=== PATIENT | female | born 1960 | race Caucasian/White ===

== ENCOUNTER → 2018-12-21 | Outpatient (CLI) | payer OTHER ==
[~2018-12-21] MED LIST: ALOG25TA PO; ASPI-555 PO; ATOR40TA69 PO; IOHEXOL-350 50ML VIAL IV ONE
== END | disposition home or self-care (01) ==
LOC: RAH 13:50
PROVIDERS: ATTEND Neurological Surgery
DX: D32.9 Benign neoplasm of meninges, unspecified (principal)
CPT/HCPCS: 70470; Q9967

== ENCOUNTER → 2019-04-04 | Outpatient (CLI) | payer OTHER ==
[~2019-04-04] MED LIST changes: -IOHEXOL-350 50ML VIAL IV ONE
== END | disposition home or self-care (01) ==
LOC: RAH 14:27
PROVIDERS: ATTEND Psychiatry & Neurology Neurology
DX: M47.26 Other spondylosis with radiculopathy, lumbar region (principal); M47.22 Other spondylosis with radiculopathy, cervical region; M51.16 Intervertebral disc disorders with radiculopathy, lumbar region; M48.061 Spinal stenosis, lumbar region without neurogenic claudication; J34.1 Cyst and mucocele of nose and nasal sinus; M25.78 Osteophyte, vertebrae
CPT/HCPCS: 72125; 72131

== ENCOUNTER → 2019-07-05 | Outpatient (CLI) | payer OTHER ==
[~2019-07-05] MED LIST changes: +GADODIAMIDE 10 MMOL/20 ML VIAL IV ONE
[2019-07-05 11:36] LABS: CREATININE 0.8 mg/dL (0.5-1.5)
== END | disposition home or self-care (01) ==
LOC: RAH 10:36
PROVIDERS: ATTEND Neurological Surgery
DX: D32.0 Benign neoplasm of cerebral meninges (principal)
CPT/HCPCS: 36415; 70553; 82565; 84520; A9579

== ENCOUNTER → 2019-08-26 | Outpatient (CLI) | payer OTHER ==
[~2019-08-26] MED LIST changes: -ASPI-555 PO; +ASPI-556 PO; -GADODIAMIDE 10 MMOL/20 ML VIAL IV ONE
== END | disposition home or self-care (01) ==
LOC: RAH 13:07
PROVIDERS: ATTEND Internal Medicine Cardiovascular Disease
DX: R60.0 Localized edema (principal)
CPT/HCPCS: 93971

== ENCOUNTER → 2020-01-08 | Outpatient (CLI) | payer BC | END | disposition home or self-care (01) | LOC: RAH 07:58 | PROVIDERS: ATTEND Family Medicine | DX: Z12.31 Encounter for screening mammogram for malignant neoplasm of breast (principal) | CPT/HCPCS: 77067 ==

== ENCOUNTER 2020-12-05 13:31 | Inpatient (IN) | payer BC ==
[~2020-12-05] VITALS: Ht 147.3 cm; Wt 102.5 kg
[2020-12-05 13:55] LABS: BASOPHILS % (AUTO) 0.6 % (0.0-5.0); EOSINOPHILS % (AUTO) 1.6 % (0.0-8.0); HEMATOCRIT 35.3 % (36-48); LYMPHOCYTES % (AUTO) 11.9 % (21.0-51.0); MEAN CORPUSCULAR HEMOGLOBIN 27.9 pg (27.0-33.0); MEAN CORPUSCULAR HGB CONC 32.3 g/dL (32.0-36.0); MEAN CORPUSCULAR VOLUME 86.5 fL (79-99); MONOCYTES % (AUTO) 6.9 % (3.0-13.0); NEUTROPHILS % (AUTO) 78.5 % (40.0-77.0); PLATELET COUNT (AUTO) 248 K/uL (130-400); RED BLOOD CELL COUNT(AUTO) 4.08 MIL/uL (4.00-5.50); RED CELL DISTRIBUTION WIDTH 13.9 % (11.0-15.5); WHITE BLOOD COUNT (AUTO) 10.9 K/uL (4.8-10.8)
[2020-12-05 14:07] LABS: CREATININE 1.3 mg/dL (0.5-1.5); POTASSIUM 4.7 mmol/L (3.5-5.1)
[2020-12-05 14:08] LABS: INR 0.96 (0.85-1.15); PROTHROMBIN TIME 10.5 SEC (9.6-11.6)
[2020-12-05 14:10] LABS: B-TYPE NATRIURETIC PEPTIDE 135 pg/mL (0-100)
[2020-12-05 14:11] LABS: ALBUMIN 3.5 g/dL (3.5-5.0); BILIRUBIN,TOTAL 0.3 mg/dL (0.2-1.0); MAGNESIUM 1.4 mg/dL (1.80-2.40); TOTAL PROTEIN, SERUM 6.5 g/dL (6.0-8.3)
[2020-12-05 15:03] LABS: PARTIAL THROMBOPLASTIN TIME 24.9 SEC (26.3-35.5)
[2020-12-05] MEDS ORDERED: HYDROCODONE/ACETAMINOPHEN 5/325 MG TAB PO PRN (20:00)
[2020-12-05] MEDS ORDERED: 0.9% NACL 500ML IV.SOLN 500 ML IV SCH (20:00)
[2020-12-05] MEDS ORDERED: ACETAMINOPHEN 325 MG TAB PO PRN ×2 (20:00)
[2020-12-05] MEDS ORDERED: MAG/ALUM/SIMETH 30 ML UDCUP PO PRN (20:00)
[2020-12-05] MEDS ORDERED: ONDANSETRON 4MG INJ IV PRN (20:00)
[2020-12-05] MEDS ORDERED: LACTULOSE 20 GM/30 ML UDCUP PO PRN (20:00)
[2020-12-05 20:10] LABS: HEMATOCRIT 34.2 % (36-48); MEAN CORPUSCULAR HEMOGLOBIN 27.9 pg (27.0-33.0); MEAN CORPUSCULAR HGB CONC 32.7 g/dL (32.0-36.0); MEAN CORPUSCULAR VOLUME 85.1 fL (79-99); RED BLOOD CELL COUNT(AUTO) 4.02 MIL/uL (4.00-5.50); RED CELL DISTRIBUTION WIDTH 13.9 % (11.0-15.5); WHITE BLOOD COUNT (AUTO) 8.8 K/uL (4.8-10.8)
[2020-12-05 20:26] LABS: CHOLESTEROL 152 mg/dL (<200); HDL CHOLESTEROL 46 mg/dL (35-85); LDL DIRECT 80 mg/dL (0-99); TRIGLYCERIDES 181 mg/dL (30-200)
[2020-12-05] MEDS: INSULIN HUMULIN R 100 UNIT/ML 3ML SQ SCH (21:00)
[2020-12-05] MEDS: ATORVASTATIN 40 MG TABLET PO SCH (21:24)
[2020-12-05] MEDS: LEVETIRACETAM 250 MG TABLET PO SCH (21:24)
[2020-12-05 21:40] VITALS: BP_SYST 129; BP_SYST 139; BP_SYST 142; BP_DIAS 68; BP_DIAS 83; BP_DIAS 99
[2020-12-05] MEDS ORDERED: AMLO-257 PO (23:50)
[2020-12-05] MEDS ORDERED: ALOG25TA PO (23:50)
[2020-12-05] MEDS ORDERED: LABE200T5 PO (23:50)
[2020-12-05] MEDS ORDERED: PREG100C PO (23:50)
[2020-12-05] MEDS ORDERED: METF-445 PO (23:50)
[2020-12-05] MEDS ORDERED: SITA100T12 PO (23:50)
[2020-12-05] MEDS ORDERED: DOXA2TAB2 PO (23:50)
[2020-12-05] MEDS ORDERED: OLME40TA18 PO (23:50)
[2020-12-06 00:16] VITALS: BP_SYST 116; BP_SYST 128; BP_SYST 135; BP_DIAS 64; BP_DIAS 75; BP_DIAS 94
[2020-12-06] MEDS ORDERED: MAGNESIUM 2GM PREMIX 50ML 50 ML IV PRN (00:30)
[2020-12-06] MEDS ORDERED: TRAM50TA4 PO (01:18)
[2020-12-06] MEDS ORDERED: FAMO40TA7 PO (01:18)
[2020-12-06] MEDS ORDERED: VITA-16 PO (01:18)
[2020-12-06] MEDS ORDERED: LABE200T5 PO (01:18)
[2020-12-06] MEDS ORDERED: DULO60CA64 PO (01:18)
[2020-12-06] MEDS ORDERED: FURO20TA4 PO (01:18)
[2020-12-06] MEDS ORDERED: TIZA4TAB5 PO (01:18)
[2020-12-06] MEDS ORDERED: VITA-300 PO (01:18)
[2020-12-06] MEDS ORDERED: AEC81 PO (01:18)
[2020-12-06] MEDS ORDERED: ATOR40TA71 PO (01:18)
[2020-12-06 04:16] VITALS: BP_SYST 113; BP_SYST 138; BP_SYST 156; BP_DIAS 70; BP_DIAS 92
[2020-12-06 04:42] LABS: APPEARANCE,URINE Clear (CLEAR); BILIRUBIN,URINE Negative (NEGATIVE); COLOR,URINE Yellow (YELLOW); GLUCOSE, URINE (UA) Negative (NEGATIVE); KETONES,URINE Negative (NEGATIVE); LEUKOCYTE ESTERASE ,URINE Small (NEGATIVE); NITRATE,URINE Positive (NEGATIVE); OCCULT BLOOD,URINE Negative (NEGATIVE); PROTEIN,URINE Negative (NEGATIVE); UROBILINOGEN,URINE 0.2 mg/dL (0.2-1.0)
[2020-12-06 04:50] LABS: AMPHET/METH SCREEN,URINE NEGATIVE (NEGATIVE); BARBITURATE SCREEN, URINE NEGATIVE (NEGATIVE); BENZODIAZEPINES SCREEN,URINE NEGATIVE (NEGATIVE); CANNABINOID SCREEN,URINE NEGATIVE (NEGATIVE); COCAINE SCREEN,URINE NEGATIVE (NEGATIVE); OPIATE SCREEN,URINE NEGATIVE (NEGATIVE); PHENCYCLIDINE SCREEN,URINE NEGATIVE (NEGATIVE)
[2020-12-06 04:52] LABS: BACTERIA,URINE Moderate /HPF (None Seen); RBC,URINE None Seen /HPF (0-1); SQUAMOUS EPITHELIAL CELL,UR 0-2 /HPF (0-2)
[2020-12-06 06:30] LABS: HEMOGLOBIN A1C 9.4 % (4.0-6.0)
[2020-12-06 06:32] LABS: CREATININE 0.7 mg/dL (0.5-1.5); MAGNESIUM 1.6 mg/dL (1.80-2.40); POTASSIUM 3.9 mmol/L (3.5-5.1)
[2020-12-06] MEDS: INSULIN HUMULIN R 100 UNIT/ML 3ML SQ SCH ×4 (06:33→20:48)
[2020-12-06 08:21] VITALS: BP_SYST 136; BP_SYST 163; BP_SYST 170; BP_DIAS 65; BP_DIAS 68
[2020-12-06] MEDS: ASPIRIN 81 MG EC TAB PO SCH (11:05)
[2020-12-06] MEDS: LEVETIRACETAM 250 MG TABLET PO SCH ×2 (11:05→20:19)
[2020-12-06] MEDS: ENOXAPARIN SODIUM 40 MG/0.4 ML SYRINGE SQ SCH (11:05)
[2020-12-06 12:00] VITALS: BP_SYST 148; BP_SYST 150; BP_SYST 159; BP_DIAS 57; BP_DIAS 73; BP_DIAS 76
[2020-12-06] MEDS: CEFTRIAXONE 1G VIAL IVP SCH (13:28)
[2020-12-06] MEDS: PREGABALIN 100 MG CAPSULE PO SCH ×2 (13:28→20:18)
[2020-12-06 16:00] VITALS: BP 147/69
[2020-12-06 20:16] VITALS: BP_SYST 162; BP_SYST 198; BP_SYST 203; BP_DIAS 56; BP_DIAS 59; BP_DIAS 88
[2020-12-06] MEDS: DOXAZOSIN MESYLATE 2 MG TABLET PO SCH (20:18)
[2020-12-06] MEDS: LABETALOL HCL 200 MG TABLET PO SCH (20:18)
[2020-12-06] MEDS: ATORVASTATIN 40 MG TABLET PO SCH (20:18)
[2020-12-06] MEDS: TIZANIDINE HCL 2 MG TABLET PO SCH (20:18)
[2020-12-06] MEDS ORDERED: ATORVASTATIN 40 MG TABLET PO SCH (21:00)
[2020-12-07] VITALS (9 sets, daily range): BP systolic 107–187; BP diastolic 52–93
[2020-12-07 06:02] LABS: BASOPHILS % (AUTO) 0.8 % (0.0-5.0); EOSINOPHILS % (AUTO) 4.1 % (0.0-8.0); HEMATOCRIT 35.2 % (36-48); LYMPHOCYTES % (AUTO) 33.5 % (21.0-51.0); MEAN CORPUSCULAR HEMOGLOBIN 27.8 pg (27.0-33.0); MEAN CORPUSCULAR HGB CONC 32.1 g/dL (32.0-36.0); MEAN CORPUSCULAR VOLUME 86.5 fL (79-99); NEUTROPHILS % (AUTO) 49.1 % (40.0-77.0); PLATELET COUNT (AUTO) 216 K/uL (130-400); RED BLOOD CELL COUNT(AUTO) 4.07 MIL/uL (4.00-5.50); WHITE BLOOD COUNT (AUTO) 6.3 K/uL (4.8-10.8)
[2020-12-07 06:19] LABS: CREATININE 0.8 mg/dL (0.5-1.5); MAGNESIUM 1.9 mg/dL (1.80-2.40); POTASSIUM 4.1 mmol/L (3.5-5.1)
[2020-12-07] MEDS: INSULIN HUMULIN R 100 UNIT/ML 3ML SQ SCH ×4 (06:40→21:00)
[2020-12-07] MEDS: ENOXAPARIN SODIUM 40 MG/0.4 ML SYRINGE SQ SCH (08:56)
[2020-12-07] MEDS: DULOXETINE HCL 30 MG CAP PO SCH (08:56)
[2020-12-07] MEDS: AMLODIPINE 5 MG TAB PO SCH (08:59)
[2020-12-07] MEDS: DOXAZOSIN MESYLATE 2 MG TABLET PO SCH ×2 (08:59→21:04)
[2020-12-07] MEDS: Vitamin B Complex/Vit C/Folic Acid PO SCH (08:59)
[2020-12-07] MEDS: ASPIRIN 81 MG EC TAB PO SCH (09:00)
[2020-12-07] MEDS: LEVETIRACETAM 250 MG TABLET PO SCH ×2 (09:00→21:04)
[2020-12-07] MEDS ORDERED: ASPIRIN 81 MG EC TAB PO SCH (09:00)
[2020-12-07] MEDS: LABETALOL HCL 200 MG TABLET PO SCH ×2 (09:00→21:03)
[2020-12-07] MEDS ORDERED: FUROSEMIDE 20 MG TABLET PO SCH (09:00)
[2020-12-07] MEDS: Olmesartan Medoxomil 40 MG PO SCH (09:00)
[2020-12-07] MEDS: PREGABALIN 100 MG CAPSULE PO SCH ×3 (09:00→21:03)
[2020-12-07] MEDS: CEFTRIAXONE 1G VIAL IVP SCH (13:44)
[2020-12-07] MEDS: ATORVASTATIN 40 MG TABLET PO SCH (21:03)
[2020-12-07] MEDS: TIZANIDINE HCL 2 MG TABLET PO SCH (21:04)
[2020-12-08 04:30] VITALS: BP 151/92
[2020-12-08 05:03] LABS: BASOPHILS % (AUTO) 0.9 % (0.0-5.0); EOSINOPHILS % (AUTO) 5.1 % (0.0-8.0); HEMATOCRIT 35.8 % (36-48); LYMPHOCYTES % (AUTO) 37.4 % (21.0-51.0); MEAN CORPUSCULAR HEMOGLOBIN 27.4 pg (27.0-33.0); MEAN CORPUSCULAR VOLUME 88.4 fL (79-99); MONOCYTES % (AUTO) 12.1 % (3.0-13.0); PLATELET COUNT (AUTO) 203 K/uL (130-400); RED BLOOD CELL COUNT(AUTO) 4.05 MIL/uL (4.00-5.50); RED CELL DISTRIBUTION WIDTH 14.2 % (11.0-15.5); WHITE BLOOD COUNT (AUTO) 5.5 K/uL (4.8-10.8)
[2020-12-08 05:11] LABS: CREATININE 0.7 mg/dL (0.5-1.5); POTASSIUM 3.8 mmol/L (3.5-5.1)
[2020-12-08] MEDS: INSULIN HUMULIN R 100 UNIT/ML 3ML SQ SCH ×2 (06:38→12:07)
[2020-12-08 08:10] VITALS: BP_SYST 128; BP_SYST 142; BP_DIAS 43; BP_DIAS 91
[2020-12-08 08:11] VITALS: BP 156/64
[2020-12-08] MEDS: Olmesartan Medoxomil 40 MG PO SCH (09:00)
[2020-12-08] MEDS: LEVETIRACETAM 250 MG TABLET PO SCH (10:01)
[2020-12-08] MEDS: Vitamin B Complex/Vit C/Folic Acid PO SCH (10:01)
[2020-12-08] MEDS: ENOXAPARIN SODIUM 40 MG/0.4 ML SYRINGE SQ SCH (10:01)
[2020-12-08] MEDS: DOXAZOSIN MESYLATE 2 MG TABLET PO SCH (10:02)
[2020-12-08] MEDS: AMLODIPINE 5 MG TAB PO SCH (10:02)
[2020-12-08] MEDS: ASPIRIN 81 MG EC TAB PO SCH (10:02)
[2020-12-08] MEDS: PREGABALIN 100 MG CAPSULE PO SCH (10:02)
[2020-12-08] MEDS: LABETALOL HCL 200 MG TABLET PO SCH (10:02)
[2020-12-08] MEDS: DULOXETINE HCL 30 MG CAP PO SCH (10:03)
[2020-12-08 11:31] VITALS: BP 115/80
[2020-12-08] MEDS ORDERED: LEVE250T PO (13:47)
== END 2020-12-08 15:34 | disposition home or self-care (01) | DRG 309 ==
LOC: EDH 13:31 → OBSVTOIN 17:14 → INTOOBSV 17:14 → EDHIP 17:14 → 3AH 21:59
PROVIDERS: ADMIT Hospitalist; ATTEND Hospitalist
DX: I49.9 Cardiac arrhythmia, unspecified (principal); K51.90 Ulcerative colitis, unspecified, without complications; Z68.42 Body mass index [BMI] 45.0-49.9, adult; N39.0 Urinary tract infection, site not specified; G40.909 Epilepsy, unspecified, not intractable, without status epilepticus; I95.1 Orthostatic hypotension; H93.19 Tinnitus, unspecified ear; E83.42 Hypomagnesemia; F43.9 Reaction to severe stress, unspecified; E11.65 Type 2 diabetes mellitus with hyperglycemia; E66.01 Morbid (severe) obesity due to excess calories; Z20.822 Contact with and (suspected) exposure to COVID-19; D32.9 Benign neoplasm of meninges, unspecified; E78.00 Pure hypercholesterolemia, unspecified; E78.5 Hyperlipidemia, unspecified; I10 Essential (primary) hypertension; I25.10 Atherosclerotic heart disease of native coronary artery without angina pectoris; R32 Unspecified urinary incontinence; I25.2 Old myocardial infarction; Z79.899 Other long term (current) drug therapy; Z95.5 Presence of coronary angioplasty implant and graft; Z95.1 Presence of aortocoronary bypass graft; Z86.011 Personal history of benign neoplasm of the brain; Z90.710 Acquired absence of both cervix and uterus; Z83.3 Family history of diabetes mellitus; Z82.5 Family history of asthma and other chronic lower respiratory diseases; Z82.49 Family history of ischemic heart disease and other diseases of the circulatory system; Z82.3 Family history of stroke; Z82.0 Family history of epilepsy and other diseases of the nervous system; Z80.1 Family history of malignant neoplasm of trachea, bronchus and lung; Z80.3 Family history of malignant neoplasm of breast
CPT/HCPCS: 36415; 70450; 70544; 70553; 71045; 80048; 80053; 80061; 80305; 81001; 82550; 82948; 83036; 83735; 83880; 84443; 84484; 85025; 85027; 85378; 85610; 85730; 87077; 87088; 87186; 87635; 93005; 93880; 97039; G0378; J0696; J1650; J1815; J3475

== ENCOUNTER → 2021-02-17 | Outpatient (CLI) | payer BC ==
[~2021-02-17] MED LIST changes: +AEC81 PO; +AMLO-257 PO; -ASPI-556 PO; -ATOR40TA69 PO; +ATOR40TA71 PO; +DOXA2TAB2 PO; +DULO60CA64 PO; +FURO20TA4 PO; +LABE200T5 PO; +LEVE250T PO; +METF-445 PO; +OLME40TA18 PO; +PREG100C PO; +SITA100T12 PO; +TIZA-211 PO; +VITA-16 PO
[2021-02-17 11:55] LABS: CREATININE 0.7 mg/dL (0.5-1.5)
== END | disposition home or self-care (01) ==
LOC: LAB 11:02
DX: D32.9 Benign neoplasm of meninges, unspecified (principal)
CPT/HCPCS: 36415; 82565

== ENCOUNTER → 2021-02-23 | Outpatient (CLI) | payer BC ==
[~2021-02-23] MED LIST changes: +GADOTERATE MEGLUMINE 10 MMOL/20 ML VIAL IV ONE
== END | disposition home or self-care (01) ==
LOC: RAH 12:54
DX: G37.1 Central demyelination of corpus callosum (principal)
CPT/HCPCS: 72156; 72157; A9575

== ENCOUNTER → 2021-07-22 | Outpatient (CLI) | payer BC ==
[~2021-07-22] MED LIST changes: -GADOTERATE MEGLUMINE 10 MMOL/20 ML VIAL IV ONE
== END | disposition home or self-care (01) ==
LOC: RAH 10:21
PROVIDERS: ATTEND Family Medicine
DX: S93.402A Sprain of unspecified ligament of left ankle, initial encounter (principal); X58.XXXA Exposure to other specified factors, initial encounter; Y93.89 Activity, other specified; Y92.89 Other specified places as the place of occurrence of the external cause; Y99.8 Other external cause status
CPT/HCPCS: 73610

== ENCOUNTER → 2021-08-03 | Outpatient (CLI) | payer BC | END | disposition home or self-care (01) | LOC: RAH 11:07 | PROVIDERS: ATTEND Family Medicine | DX: Z12.31 Encounter for screening mammogram for malignant neoplasm of breast (principal) | CPT/HCPCS: 77067 ==

== ENCOUNTER → 2022-08-04 | Outpatient (CLI) | payer BC, MEDICARE ==
[~2022-08-04] MED LIST changes: -ALOG25TA PO; -DOXA2TAB2 PO; -FURO20TA4 PO; -LABE200T5 PO; -LEVE250T PO; -METF-445 PO; -OLME40TA18 PO; -SITA100T12 PO; -TIZA-211 PO; -VITA-16 PO
[2022-08-04 13:39] LABS: CREATININE 1.2 mg/dL (0.5-1.5); POTASSIUM 4.9 mmol/L (3.5-5.1)
== END | disposition home or self-care (01) ==
LOC: LAB 12:11
DX: D32.9 Benign neoplasm of meninges, unspecified (principal)
CPT/HCPCS: 36415; 80048

== ENCOUNTER → 2022-08-10 | Outpatient (CLI) | payer BC, MEDICARE ==
[~2022-08-10] MED LIST changes: +GADOTERATE MEGLUMINE 5 MMOL/10 ML VIAL IV ONE
== END | disposition home or self-care (01) ==
LOC: RAH 10:53
DX: D32.9 Benign neoplasm of meninges, unspecified (principal); R90.82 White matter disease, unspecified
CPT/HCPCS: 70553; A9575

== ENCOUNTER → 2022-08-15 | Outpatient (CLI) | payer BC ==
[~2022-08-15] MED LIST changes: -GADOTERATE MEGLUMINE 5 MMOL/10 ML VIAL IV ONE
[2022-08-15 12:11] LABS: BASOPHILS % (AUTO) 1.2 % (0.0-5.0); EOSINOPHILS % (AUTO) 4.1 % (0.0-8.0); HEMATOCRIT 37.5 % (36-48); LYMPHOCYTES % (AUTO) 22.4 % (21.0-51.0); MEAN CORPUSCULAR HGB CONC 31.7 g/dL (32.0-36.0); MEAN CORPUSCULAR VOLUME 82.1 fL (79-99); MONOCYTES % (AUTO) 7.5 % (3.0-13.0); NEUTROPHILS % (AUTO) 63.9 % (40.0-77.0); PLATELET COUNT (AUTO) 304 K/uL (130-400); RED BLOOD CELL COUNT(AUTO) 4.57 MIL/uL (4.00-5.50); RED CELL DISTRIBUTION WIDTH 15.8 % (11.0-15.5); WHITE BLOOD COUNT (AUTO) 7.7 K/uL (4.8-10.8)
[2022-08-15 12:19] LABS: HEMOGLOBIN A1C 12.7 % (4.0-6.0)
== END | disposition home or self-care (01) ==
LOC: RAH 11:28
PROVIDERS: ATTEND Family Medicine
DX: Z12.31 Encounter for screening mammogram for malignant neoplasm of breast (principal)
CPT/HCPCS: 36415; 77067; 83036; 85025

== ENCOUNTER 2023-03-01 13:42 | Emergency (ER) | payer BC, MEDICARE ==
[~2023-03-01] VITALS: Ht 152.4 cm; Wt 113.4 kg
[~2023-03-01 13:42] MED LIST changes: +ALOG25TA PO; +LABE200T7 PO; +LAMO25TA9 PO; +METF-444 PO; +OLME40TA18 PO; +SITA100T12 PO; +TIZA-211 PO
[2023-03-01 15:01] LABS: BASOPHILS # (AUTO) 0.05 K/uL (0.00-0.20); BASOPHILS % (AUTO) 0.6 % (0.0-5.0); EOSINOPHILS % (AUTO) 2.4 % (0.0-8.0); HEMATOCRIT 34.2 % (36-48); IMMATURE GRANULOCYTE ABSOLUTE 0.06 K/uL (0-1); LYMPHOCYTES # (AUTO) 0.9 K/uL (1.0-4.8); LYMPHOCYTES % (AUTO) 10.7 % (21.0-51.0); MEAN CORPUSCULAR HEMOGLOBIN 26.1 pg (27.0-33.0); MEAN CORPUSCULAR HGB CONC 32.5 g/dL (32.0-36.0); MEAN CORPUSCULAR VOLUME 80.3 fL (79-99); MONOCYTES # (AUTO) 0.6 K/uL (0.1-1.0); MONOCYTES % (AUTO) 7.6 % (3.0-13.0); NEUTROPHILS # (AUTO) 6.5 K/uL (1.8-7.7); PLATELET COUNT (AUTO) 253 K/uL (130-400); RED BLOOD CELL COUNT(AUTO) 4.26 MIL/uL (4.00-5.50); RED CELL DISTRIBUTION WIDTH 14.4 % (11.0-15.5); WHITE BLOOD COUNT (AUTO) 8.3 K/uL (4.8-10.8)
[2023-03-01 15:11] LABS: CREATININE 0.9 mg/dL (0.5-1.5); POTASSIUM 4.5 mmol/L (3.5-5.1)
[2023-03-01 15:21] LABS: ALBUMIN 3.2 g/dL (3.5-5.0); BILIRUBIN,TOTAL 0.5 mg/dL (0.2-1.0); TOTAL PROTEIN, SERUM 6.4 g/dL (6.0-8.3)
[2023-03-01 17:59] VITALS: BP 125/62; PULSE 68; RESP 19; O2SAT 96
[2023-03-01 18:13] LABS: APPEARANCE,URINE CLOUDY (CLEAR); BILIRUBIN,URINE NEGATIVE (NEGATIVE); COLOR,URINE YELLOW (YELLOW); GLUCOSE, URINE (UA) >=1000 mg/dL (NEGATIVE); KETONES,URINE NEGATIVE (NEGATIVE); LEUKOCYTE ESTERASE ,URINE 500 Leu/uL (NEGATIVE); NITRATE,URINE 2+ (NEGATIVE); OCCULT BLOOD,URINE NEGATIVE (NEGATIVE); PH,URINE 5.5 (5.0-8.0); PROTEIN,URINE 10 mg/dL (NEGATIVE); UROBILINOGEN,URINE 0.2 mg/dL (0.2-1.0)
[2023-03-01 18:14] LABS: ADD UA MICROSCOPIC YES
[2023-03-01 18:15] LABS: BACTERIA,URINE FEW /HPF (None Seen); MUCUS,URINE RARE LPF (None Seen); OTHER CASTS, URINE 5 /LPF (None Seen); SQUAMOUS EPITHELIAL CELL,UR FEW /HPF (0-2); UNCLASSIFIED CRYSTAL 4 /HPF (None Seen); WBC,URINE TNTC /HPF (0-1); YEAST,URINE BUDDING RARE /HPF (None Seen)
[2023-03-01] MEDS ORDERED: 0.9% NACL 500ML IV.SOLN 500 ML IV ONE (18:30)
[2023-03-01] MEDS ORDERED: NITR100C PO (18:32)
[2023-03-02] MEDS ORDERED: METF-445 PO (23:00)
== END 2023-03-01 20:05 | disposition home or self-care (01) ==
LOC: EDH 13:42
DX: I95.1 Orthostatic hypotension (principal); E11.9 Type 2 diabetes mellitus without complications; E78.00 Pure hypercholesterolemia, unspecified; I10 Essential (primary) hypertension; Z79.82 Long term (current) use of aspirin; Z79.84 Long term (current) use of oral hypoglycemic drugs; Z79.899 Other long term (current) drug therapy; Z85.841 Personal history of malignant neoplasm of brain; Z88.5 Allergy status to narcotic agent
CPT/HCPCS: 99284; 96360; 71045; 96361; 84484; 80053; 85025; 87077; 87088; 87186; 81001; 36415; 93005; J7040

== ENCOUNTER 2023-08-29 10:40 | Day surgery (SDC) | payer BC, MEDICARE ==
[~2023-08-29] VITALS: Ht 144.8 cm; Wt 93.4 kg
[2023-08-29] VITALS (12 sets, daily range): BP systolic 94–143; BP diastolic 41–78; PULSE 60–91; RESP 12–19
[~2023-08-29 10:40] MED LIST changes: +ACET-2247 PO; -ALOG25TA PO; -AMLO-257 PO; +ERGO500093 PO; +FAMO40TA7 PO; +LAMO150T6 PO; -METF-444 PO; +METF-445 PO; -TIZA-211 PO; +TIZA4CAP8 PO; +TRAM50TA4 PO; +VITA1CAP85 PO
[2023-08-29] MEDS: 0.9%NACL 1000ML 1,000 ML IV ONE (12:44)
[2023-08-29] MEDS ORDERED: TYLENOL PO (12:51)
[2023-08-29] MEDS ORDERED: SITA100T12 PO (12:51)
[2023-08-29] MEDS ORDERED: MIRA50TA PO (12:51)
[2023-08-29] MEDS ORDERED: INSLAN SQ (12:51)
[2023-08-29] MEDS ORDERED: DULO60CA64 PO (12:51)
[2023-08-29] MEDS ORDERED: PROPOFOL 10 MG/ML 20ML VIAL IV ONE (12:58)
== END 2023-08-29 14:45 | disposition home or self-care (01) ==
LOC: ENDO 10:40 → DAH 10:40 → ENDO 14:45
PROVIDERS: ATTEND Internal Medicine Gastroenterology
DX: Z12.11 Encounter for screening for malignant neoplasm of colon (principal); K29.50 Unspecified chronic gastritis without bleeding; K21.00 Gastro-esophageal reflux disease with esophagitis, without bleeding; K64.0 First degree hemorrhoids; K51.311 Ulcerative (chronic) rectosigmoiditis with rectal bleeding; R13.10 Dysphagia, unspecified; K25.3 Acute gastric ulcer without hemorrhage or perforation; E11.9 Type 2 diabetes mellitus without complications; I10 Essential (primary) hypertension; E78.5 Hyperlipidemia, unspecified; Z82.5 Family history of asthma and other chronic lower respiratory diseases; Z82.3 Family history of stroke; Z82.49 Family history of ischemic heart disease and other diseases of the circulatory system; Z79.4 Long term (current) use of insulin; Z79.82 Long term (current) use of aspirin; Z79.899 Other long term (current) drug therapy; Z98.890 Other specified postprocedural states; Z90.49 Acquired absence of other specified parts of digestive tract; Z90.710 Acquired absence of both cervix and uterus
CPT/HCPCS: 82948; 43239; 45380; J7030 ×2; J2704; A4620; A4215; A4223; A7002; A4222; A4221; A4663; A4606; J3490

== ENCOUNTER → 2023-10-19 | Outpatient (CLI) | payer BC, MEDICARE ==
[~2023-10-19] MED LIST changes: -ACET-2247 PO; -ERGO500093 PO; -FAMO40TA7 PO; +INSLAN SQ; -LAMO25TA9 PO; -METF-445 PO; +MIRA50TA PO; -PREG100C PO; -TIZA4CAP8 PO; -TRAM50TA4 PO; +TYLENOL PO; -VITA1CAP85 PO
== END | disposition home or self-care (01) ==
LOC: LAB 11:20
PROVIDERS: ATTEND Internal Medicine Gastroenterology
DX: K51.311 Ulcerative (chronic) rectosigmoiditis with rectal bleeding (principal)
CPT/HCPCS: 36415; 82565; 84520

== ENCOUNTER → 2023-10-23 | Outpatient (CLI) | payer BC, MEDICARE ==
[~2023-10-23] MED LIST changes: +IOHEXOL 350 MG/ML 100ML INFUS..BTL IV ONE
== END | disposition home or self-care (01) ==
LOC: RAH 07:51
PROVIDERS: ATTEND Internal Medicine Gastroenterology
DX: R19.02 Left upper quadrant abdominal swelling, mass and lump (principal); M47.815 Spondylosis without myelopathy or radiculopathy, thoracolumbar region; I70.90 Unspecified atherosclerosis; Z90.49 Acquired absence of other specified parts of digestive tract
CPT/HCPCS: 74177; Q9967

== ENCOUNTER → 2023-11-27 | Outpatient (CLI) | payer BC, MEDICARE ==
[~2023-11-27] MED LIST changes: -IOHEXOL 350 MG/ML 100ML INFUS..BTL IV ONE
== END | disposition home or self-care (01) ==
LOC: LAB 13:34
PROVIDERS: ATTEND Internal Medicine Gastroenterology
DX: R93.2 Abnormal findings on diagnostic imaging of liver and biliary tract (principal)
CPT/HCPCS: 36415; 82565; 84520

== ENCOUNTER → 2023-12-01 | Outpatient (CLI) | payer BC, MEDICARE ==
[~2023-12-01] MED LIST changes: +GADOTERATE MEGLUMINE 10 MMOL/20 ML VIAL IV ONE
== END | disposition home or self-care (01) ==
LOC: RAH 07:43
PROVIDERS: ATTEND Internal Medicine Gastroenterology
DX: R93.2 Abnormal findings on diagnostic imaging of liver and biliary tract (principal); Z90.49 Acquired absence of other specified parts of digestive tract
CPT/HCPCS: 74183; A9575

== ENCOUNTER 2024-02-08 06:35 | Day surgery (SDC) | payer BC, MEDICARE ==
[2024-02-08] VITALS (9 sets, daily range): BP systolic 114–161; BP diastolic 56–78; PULSE 62–69; RESP 15–19; TEMP 96.9–97.1
[~2024-02-08] VITALS: Ht 147.3 cm; Wt 93.4 kg
[~2024-02-08 06:35] MED LIST changes: -GADOTERATE MEGLUMINE 10 MMOL/20 ML VIAL IV ONE
[2024-02-08] MEDS ORDERED: MEMA5TAB16 PO (07:46)
[2024-02-08] MEDS: 0.9%NACL 1000ML 1,000 ML IV ONE (07:57)
[2024-02-08] MEDS ORDERED: proPOFol 10 MG/ML 20ML VIAL IV ONE ×2 (08:23→08:56)
--- NOTE | 2024-02-08 10:01 | NUR ---
Patient aox4. Denies c/o pain or discomfort. Voiced understanding to EUS/Liver FNB precautions and follow up expectations. No c/o pain or sign or bleeding. Ambulated to bathroom with W/C assist. Voided large amount of clear urine. PIV discontinued with catheter tip intact. Full and complete Discharge instructions given to Patient and Family. All questions answered. W/C to POV with Family to Home.
== END 2024-02-08 10:00 | disposition home or self-care (01) ==
LOC: DAH 06:35 → ENDO 06:35
PROVIDERS: ATTEND Internal Medicine Gastroenterology
DX: R93.2 Abnormal findings on diagnostic imaging of liver and biliary tract (principal); K76.0 Fatty (change of) liver, not elsewhere classified; R19.7 Diarrhea, unspecified; I10 Essential (primary) hypertension; K21.9 Gastro-esophageal reflux disease without esophagitis; E66.01 Morbid (severe) obesity due to excess calories; E11.9 Type 2 diabetes mellitus without complications; E78.5 Hyperlipidemia, unspecified; E55.9 Vitamin D deficiency, unspecified; Z98.891 History of uterine scar from previous surgery; Z90.710 Acquired absence of both cervix and uterus; Z90.49 Acquired absence of other specified parts of digestive tract; Z98.890 Other specified postprocedural states; Z82.49 Family history of ischemic heart disease and other diseases of the circulatory system; Z80.3 Family history of malignant neoplasm of breast; Z79.82 Long term (current) use of aspirin; Z79.899 Other long term (current) drug therapy; Z68.41 Body mass index [BMI] 40.0-44.9, adult
CPT/HCPCS: 43242; 82948 ×2; J7030 ×2; J2704 ×2; A4620; A4215 ×2; A4223; A7002; A4222; A4221; A4663; A4606; J3490

== ENCOUNTER → 2024-04-01 | Outpatient (CLI) | payer BC, MEDICARE ==
[~2024-04-01] MED LIST changes: -ATOR40TA71 PO; +MEMA5TAB16 PO; -SITA100T12 PO
--- NOTE | 2024-04-01 15:53 | HMCIMG ---
Exam Type: UPPER GI TRACT, WO KUB Clinical Information: DYSPHAGIA;Acute gastric ulcer without hemorrhage or perforation;Unspecified Comparison: None Findings: Due to significant patient motion. Limitation in a supine position, a limited exam was performed. Examination demonstrates an anatomically intact esophagus except for mild tertiary contractions. No reflux or obstruction or stenotic lesions seen. The stomach could not be well evaluated. Even after significant delay, no contrast is noted entering the stomach mid to distal body or duodenum. Impression: Mild tertiary waves of the esophagus. No anatomical obstruction Suboptimal evaluation of the stomach presumably due to decreased emptying. Consider gastric emptying study for further evaluation as well as endoscopy.
== END | disposition home or self-care (01) ==
LOC: RAH 09:47
PROVIDERS: ATTEND Internal Medicine
DX: R13.10 Dysphagia, unspecified (principal); K25.3 Acute gastric ulcer without hemorrhage or perforation; K29.50 Unspecified chronic gastritis without bleeding; R19.02 Left upper quadrant abdominal swelling, mass and lump
CPT/HCPCS: 74240

== ENCOUNTER → 2024-04-01 | Outpatient (CLI) | payer BC, MEDICARE ==
[2024-04-01 12:15] LABS: BASOPHILS # (AUTO) 0.05 K/uL (0.00-0.20); BASOPHILS % (AUTO) 0.6 % (0.0-5.0); EOSINOPHILS # (AUTO) 0.68 K/uL (0.00-0.70); EOSINOPHILS % (AUTO) 8.4 % (0.0-8.0); HEMATOCRIT 39.2 % (36-48); IMMATURE GRANULOCYTE ABSOLUTE 0.04 K/uL (0-1); LYMPHOCYTES # (AUTO) 1.1 K/uL (1.0-4.8); LYMPHOCYTES % (AUTO) 14.1 % (21.0-51.0); MEAN CORPUSCULAR HEMOGLOBIN 25.8 pg (27.0-33.0); MEAN CORPUSCULAR HGB CONC 31.6 g/dL (32.0-36.0); MEAN CORPUSCULAR VOLUME 81.5 fL (79-99); MONOCYTES # (AUTO) 0.8 K/uL (0.1-1.0); MONOCYTES % (AUTO) 9.8 % (3.0-13.0); NEUTROPHILS # (AUTO) 5.4 K/uL (1.8-7.7); NEUTROPHILS % (AUTO) 66.6 % (40.0-77.0); PLATELET COUNT (AUTO) 252 K/uL (130-400); RED BLOOD CELL COUNT(AUTO) 4.81 MIL/uL (4.00-5.50); RED CELL DISTRIBUTION WIDTH 15.5 % (11.0-15.5); WHITE BLOOD COUNT (AUTO) 8.1 K/uL (4.8-10.8)
[2024-04-01 12:30] LABS: INR 0.97 (0.85-1.15); PROTHROMBIN TIME 10.9 SEC (9.6-11.6)
[2024-04-01 12:32] LABS: PARTIAL THROMBOPLASTIN TIME 27.1 SEC (26.3-35.5)
[2024-04-01 12:50] LABS: ALBUMIN 3.5 g/dL (3.5-5.0); BILIRUBIN,TOTAL 0.5 mg/dL (0.2-1.0); POTASSIUM 3.8 mmol/L (3.5-5.1); TOTAL PROTEIN, SERUM 7.1 g/dL (6.0-8.3)
[2024-04-01 13:20] LABS: ERYTHROCYTE SEDIMENTATION RATE 14 MM/HR (0-30)
== END | disposition home or self-care (01) ==
LOC: LAB 10:14
PROVIDERS: ATTEND Internal Medicine
DX: K76.0 Fatty (change of) liver, not elsewhere classified (principal); R93.2 Abnormal findings on diagnostic imaging of liver and biliary tract; R19.7 Diarrhea, unspecified
CPT/HCPCS: 36415; 80053; 82105; 82378; 83993; 85025; 85610; 85651; 85730; 86140; 86304; 86316

== ENCOUNTER → 2024-04-18 | Outpatient (CLI) | payer BC, MEDICARE ==
[~2024-04-18] MED LIST changes: +IOHEXOL 350 MG/ML 100ML INFUS..BTL IV ONE; +IOHEXOL-350 75 ML VIAL IV ONE
--- NOTE | 2024-04-18 10:35 | HMCIMG ---
CT ABDOMEN W/WO CONTRAST REASON: ABN LIVER AND BILIARY COMPARISON: 10/23/2023 TECHNIQUE: Images are obtained from lung bases through the iliac crests for and after IV contrast, 100 cc Omnipaque 350. Three-phase hepatic imaging technique was performed with arterial phase, venous phase and renal delay images. Oral contrast was administered as well. FINDINGS: Lung bases are clear. Images again demonstrate diffusely present to 3 to 5 mm areas of decreased attenuation on the arterial phase enhancement images, present in the liver. There are larger focal lesions present throughout the spleen. These findings have not changed significantly compared to prior CT 10/23/2023. This pattern is not visible on the precontrast images, the hepatic appearance resolves on the venous images. Interval stable appearance suggest hepatocellular abnormality rather than neoplasm. There are no new focal liver lesions. The liver does not appear enlarged.. There are normal-appearing kidneys.. Spleen and pancreas appear unremarkable. There has been a previous cholecystectomy. Bowel loops appear unremarkable. The appendix was not separately identified. There is no evidence of free fluid or intraperitoneal air. There are no focal fluid collections. Aorta is calcified but not aneurysmal. There is no retroperitoneal lymphadenopathy. The anterior abdominal wall is intact. Osseous structures appear unremarkable. IMPRESSION: 1. Multiple small low-attenuation lesions present throughout the liver and spleen on arterial phase imaging, these appear stable compared to prior study July 23, 2023 2. Absent gallbladder. 3. No new focal abnormalities identified 4. Liver biopsy remains indicated if there are abnormal liver function studies. CT was performed with one or more following dose reduction techniques: automated exposure control, adjustment of the mA and kv according to patient's size, or use of a iterative reconstruction technique.
== END | disposition home or self-care (01) ==
LOC: RAH 04-04 07:58
PROVIDERS: ATTEND Internal Medicine
DX: K76.0 Fatty (change of) liver, not elsewhere classified (principal); I70.0 Atherosclerosis of aorta; R93.2 Abnormal findings on diagnostic imaging of liver and biliary tract; Z90.49 Acquired absence of other specified parts of digestive tract
CPT/HCPCS: 74170; Q9967

== ENCOUNTER → 2024-07-29 | Outpatient (CLI) | payer OTHER ==
[~2024-07-29] MED LIST changes: -IOHEXOL 350 MG/ML 100ML INFUS..BTL IV ONE; -IOHEXOL-350 75 ML VIAL IV ONE
--- NOTE | 2024-07-30 09:58 | HMCIMG ---
NM GASTRIC EMPTYING STUDY REASON: Abdominal Distension COMPARISON: None TECHNIQUE: Routine imaging protocol was performed following ingestion of 1.5 mCi technetium 99m sulfur colloid mixed with 2 scrambled FINDINGS: Time activity curve yields a rising curve throughout the time.. There is no visible gastric emptying through the 90 minute sequence. T1 half therefore cannot be calculated. IMPRESSION: 1. No significant gastric emptying identified during the 90 minute observation, consistent with markedly delayed gastric emptying.
== END | disposition home or self-care (01) ==
LOC: RAH 10:46
PROVIDERS: ATTEND Internal Medicine
DX: R14.0 Abdominal distension (gaseous) (principal)
CPT/HCPCS: 78264; A9541

== ENCOUNTER → 2024-08-01 | Outpatient (CLI) | payer OTHER ==
--- NOTE | 2024-08-01 13:50 | NUR ---
MBSS COMPLETED (OUTPATIENT). NO ASPIRATION/NO PENETRATIONS. RECOMMEND REGULAR SOLIDS, THIN LIQUIDS AND PILLS WHOLE WITH LIQUIDS TOLERATED. Pt REPORTS GLOBUS SENSATION AND COUGHING/CHOKING WITH AND WITHOUT ORAL INTAKE. 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 DIAGNOSTIC FINDINGS: Oropharyngeal swallowing is within functional limits. No penetrations or aspiration observed. Pt with mild pharyngeal residue cleared with re-swallows. Otherwise, exam was negative for etiology of patients c/o globus sensation/choking with oral intake. MAY WANT TO CONSIDER ENT CONSULT TO FURTHER EVALUATE AREA OF CONCERN. MALL MANAGER REVIEWED RESULTS AND RECOMMENDATIONS WITH PATIENT. MALL MANAGER EDUCATED PATIENT ON RISKS AND CONSEQUENCES OF ASPIRATION. SPEECH THERAPY NOT WARRANTED AT THIS TIME. ALL QUESTIONS ANSWERED. Addendum: 08/01/[address] NOE SARAVIA Amended: Links added.
--- NOTE | 2024-08-01 14:24 | HMCIMG ---
MODIFIED BARIUM SWALLOW W CINE INDICATION: DYSPHAGIA, UNSPECIFIED FINDINGS: Fluoroscopic assistance was provided to the speech pathologist while performing examination. For findings and dietary recommendations, refer to speech pathologist's report. FLUORO TIME: 3 minutes 33 seconds IMPRESSION: Modified barium swallow as described.
== END | disposition home or self-care (01) ==
LOC: RAH 12:49
PROVIDERS: ATTEND Internal Medicine
DX: R13.10 Dysphagia, unspecified (principal); R63.30 Feeding difficulties, unspecified
CPT/HCPCS: 74230; 92611

== ENCOUNTER 2024-09-03 07:03 | Day surgery (SDC) | payer OTHER ==
[2024-09-03] VITALS (11 sets, daily range): BP systolic 121–177; BP diastolic 54–73; PULSE 60–74; RESP 14–18; TEMP 96.4–97.8
[~2024-09-03] VITALS: Ht 147.3 cm; Wt 90.3 kg
[2024-09-03] MEDS: 0.9%NACL 1000ML 1,000 ML IV ONE (08:34)
[2024-09-03] MEDS ORDERED: CHOL100053 PO (09:01)
[2024-09-03] MEDS ORDERED: ATOR40TA69 PO (09:01)
[2024-09-03] MEDS ORDERED: TIRZ10PE SQ (09:01)
[2024-09-03] MEDS ORDERED: PREG100C56 PO (09:01)
[2024-09-03] MEDS ORDERED: HYDR-4060 PO (09:01)
[2024-09-03] MEDS ORDERED: CRANBERRY PO (09:01)
[2024-09-03] MEDS ORDERED: AMOX1TAB16 PO (09:01)
[2024-09-03] MEDS ORDERED: OMEP40CA21 PO ×2 (09:01)
[2024-09-03] MEDS ORDERED: VITAMIN B12 COMPLEX PO (09:01)
[2024-09-03] MEDS ORDERED: FAMO40TA7 PO (09:01)
== END 2024-09-03 11:45 | disposition home or self-care (01) ==
LOC: DAH 07:03 → ENDO 07:03
PROVIDERS: ATTEND Internal Medicine
DX: R13.10 Dysphagia, unspecified (principal); K22.9 Disease of esophagus, unspecified; K44.9 Diaphragmatic hernia without obstruction or gangrene; K29.50 Unspecified chronic gastritis without bleeding; I10 Essential (primary) hypertension; K21.00 Gastro-esophageal reflux disease with esophagitis, without bleeding; K31.84 Gastroparesis; E11.43 Type 2 diabetes mellitus with diabetic autonomic (poly)neuropathy; R93.2 Abnormal findings on diagnostic imaging of liver and biliary tract; K51.311 Ulcerative (chronic) rectosigmoiditis with rectal bleeding; K25.3 Acute gastric ulcer without hemorrhage or perforation; K76.0 Fatty (change of) liver, not elsewhere classified; R19.7 Diarrhea, unspecified; R19.02 Left upper quadrant abdominal swelling, mass and lump; E55.9 Vitamin D deficiency, unspecified; E78.5 Hyperlipidemia, unspecified; E66.9 Obesity, unspecified; Z87.898 Personal history of other specified conditions; Z90.49 Acquired absence of other specified parts of digestive tract; Z98.890 Other specified postprocedural states; Z90.710 Acquired absence of both cervix and uterus; Z79.899 Other long term (current) drug therapy; Z68.41 Body mass index [BMI] 40.0-44.9, adult
CPT/HCPCS: 82948 ×2; 43239; 43248; J7030 ×2; J2704 ×2; A4620; A4215; A4223; A7002; A4222; A4221; A4663; A4606; J3490

== ENCOUNTER → 2024-09-23 | Outpatient (CLI) | payer OTHER ==
[~2024-09-23] MED LIST changes: +AMOX1TAB16 PO; +ATOR40TA69 PO; +CHOL100053 PO; +CRANBERRY PO; +FAMO40TA7 PO; +GADOTERATE MEGLUMINE 10 MMOL/20 ML VIAL IV ONE; +HYDR-4060 PO; +OMEP40CA21 PO; +PREG100C56 PO; +TIRZ10PE SQ; +VITAMIN B12 COMPLEX PO
--- NOTE | 2024-09-23 12:41 | HMCIMG ---
EXAM: MR Brain with Intravenous Contrast. CLINICAL HISTORY: 64-year-old female with a personal history of benign neoplasm. TECHNIQUE: Magnetic resonance images of the brain with intravenous contrast in multiple planes. CONTRAST: Clariscan 19 ml. COMPARISON: MR Brain dated 08/10/2022, 11:28 am. FINDINGS: BRAIN: Moderate atrophy. Moderate chronic ischemic changes. Some increased signal structures are seen in the deep white matter periventricular zones, possibly demyelinating disease such as multiple sclerosis. No restricted diffusion to indicate acute infarction. No intracranial mass or hemorrhage. No midline shift or extra-axial fluid collection. No cerebellar tonsillar ectopia. The periventricular zone lesions are the same compared to the prior study. VENTRICLES: No hydrocephalus. ORBITS: The orbits are normal. SINUSES AND MASTOIDS: The sinuses and mastoid air cells are clear. BONES: No acute fracture. Following contrast administration, there are multiple enhancing masses in the calvarium. The differential consideration includes metastatic disease. Correlate clinically. The calvarial lesions are new compared to the prior study. IMPRESSION: 1. Multiple enhancing masses in the calvarium, new compared to prior study dated 08/10/2022. Differential consideration includes metastatic disease. Correlate clinically. 2. Moderate atrophy and moderate chronic ischemic changes. 3. Increased signal structures in the deep white matter periventricular zones, possibly demyelinating disease such as multiple sclerosis, stable compared to prior study. /[place]
== END | disposition home or self-care (01) ==
LOC: RAH 08:18
PROVIDERS: ATTEND Internal Medicine
DX: I67.82 Cerebral ischemia (principal); G31.9 Degenerative disease of nervous system, unspecified; G93.89 Other specified disorders of brain; Z86.018 Personal history of other benign neoplasm; Z98.890 Other specified postprocedural states
CPT/HCPCS: 70553; A9575

== ENCOUNTER 2024-10-25 15:32 | Emergency (ER) | payer OTHER ==
[~2024-10-25] VITALS: Ht 147.3 cm; Wt 90.7 kg
[~2024-10-25 15:32] MED LIST changes: +ACET-2079 PO; -AMOX1TAB16 PO; +CEFD300C3 PO; -GADOTERATE MEGLUMINE 10 MMOL/20 ML VIAL IV ONE; -HYDR-4060 PO; +IBUP-2076 PO; +METO10TA3 PO
--- NOTE | 2024-10-25 15:47 | ERN ---
ED Note History of Present Illness Stated Complaint: FALL Chief Complaint: Mechanical Fall Time Seen by MD: 15:40 Dictation: PATIENT IS A 64-YEAR-OLD FEMALE COMING IN TODAY STATUS POST A SAME LEVEL SLIP AND MECHANICAL FALL ON MONDAY. SHE STATES SHE FELL AND HIT HER LEFT FACE. SHE HAS A OBVIOUS ECCHYMOSIS AND SWELLING TO THE LEFT ORBITAL AREA. NO LOC NO NAUSEA VOMITING NO BLOOD THINNERS. SHE STATES SHE DID NOT GO SEE HER PRIMARY CARE DOCTOR DID NOT COME TO THE HOSPITAL. PATIENT CURRENTLY ALERT AND ORIENTED X4 SPEECH IS CLEAR. EOMS INTACT. NO SPINAL PAIN SHE DOES HAVE A SLING WITH A SPLINT TO THE LEFT FOREARM STATUS POST SURGERY TO HER LEFT RADIAL AND ULNAR BY DR. GUTIERREZ LAST WEEK. HE IS NOT COMPLAINING OF ANY ARM PAIN. Allergies: Coded Allergies: No Known Drug Allergies (Unverified Allergy, Unknown, 03/01/23) Home Meds Active Scripts Acetaminophen with Codeine (Acetaminophen-Cod #3 Tablet) 300 Mg-30 Mg Tablet, 1 TAB PO Q8H PRN for pain for 3 Days, #9 TAB 0 Refills Prov:JERRY SHELDON DROP WIRER 10/18/24 Cefdinir (Cefdinir) 300 Mg Capsule, 1 CAP PO BID for 3 Days, #14 CAP 0 Refills Prov:JERRY SHELDON NP 10/18/24 Ibuprofen (Ibuprofen) 400 Mg Tablet, 400 MG PO Q8H PRN for PAIN for 5 Days, #15 TAB Prov:JERRY SHELDON DROP WIRER 10/18/24 Reported Medications Metoclopramide HCl (Metoclopramide HCl) 10 Mg Tablet, 1 TAB PO TID for 30 Days, #120 TAB 0 Refills 10/15/24 Famotidine (Famotidine) 40 Mg Tablet, 1 TAB PO DAILY for 30 Days, #30 TAB 0 Refills 09/03/24 [Cranberry] No Conflict Check, 650 MG PO AM 09/03/24 Tirzepatide (Mounjaro) 10 Mg/0.5 Ml Pen.injctr, 10 MG SQ QWEEK 09/03/24 Pregabalin (Pregabalin) 100 Mg Capsule, 1 CAP PO TID MDD 3 Capsule(s) for 30 Days, #90 CAP 0 Refills 09/03/24 Omeprazole (Omeprazole) 40 Mg Capsule.dr, 1 CAP PO DAILY for 30 Days, #30 CAP 0 Refills 09/03/24 Atorvastatin Calcium (LIPITOR) 40 Mg Tablet, 1 TAB PO DAILY for 30 Days, #30 TAB 0 Refills 09/03/24 Cholecalciferol (Vitamin D3) (Vitamin D3) 250 Mcg (83452 Unit) Capsule, 1 CAP PO DAILY for 30 Days, #30 CAP 0 Refills 09/03/24 [Vitamin B12 Complex] No Conflict Check, 100 MG PO AM 09/03/24 Memantine HCl (Memantine HCl) 5 Mg Tablet, 5 MG PO HS, TAB 02/08/24 Insulin Glargine,Hum.rec.anlog (Lantus) 100 Unit/Ml Inj, 100 UNITS SQ AM, ML 08/29/23 Duloxetine HCl (Duloxetine HCl) 60 Mg Capsule.dr, 60 MG PO AM, CAP 08/29/23 Mirabegron (Myrbetriq) 50 Mg Tab.er.24h, 50 MG PO AM, TAB 08/29/23 [Tylenol] No Conflict Check, 650 MG PO BID 08/29/23 Lamotrigine (Lamotrigine) 150 Mg Tablet, 150 MG PO BID, TAB 04/05/23 Labetalol HCl (Labetalol HCl) 200 Mg Tablet, 200 MG PO BID, TAB 04/05/23 Olmesartan Medoxomil (Olmesartan Medoxomil) 40 Mg Tablet, 40 MG PO DAILY, TAB 10/26/22 Aspirin (ASPIRIN 81 MG ECTAB) 81 Mg Ectab, 81 MG PO DAILY, TAB.EC 12/06/20 Discontinued Reported Medications Amoxicillin/Potassium Clav (Amox Tr-K Clv 875-125 mg Tab) 875 Mg-125 Mg Tablet, 1 TAB PO BID for 10 Days, #20 TAB 0 Refills 09/03/24 Hydrocodone/Acetaminophen (Hydrocodon-Acetaminophen 5-325) 5 Mg-325 Mg Tablet, 1-2 TAB PO Q4HPRN PRN for pain for 3 Days, #40 TAB 0 Refills 09/03/24 Past Medical History Past Medical History: CHF, Diabetes-Type II, High Cholesterol, Heart Disease, Hypertension Additional Past Medical Hx: BRAIN TUMORS Surgical History: CABG, Other Surgical History Other: CRAINEOTOMY Social History: Lives with family History: Not Applicable RN Note Reviewed/Agreed w/PFSH: Yes Review of System Dictation CONSTITUTIONAL: NEGATIVE EXCEPT FOR HPI HEAD/FACE: NEGATIVE EXCEPT FOR HPI LEFT ORBITAL ECCHYMOSIS WITH BRUISING TO CHIN. EENT: NEGATIVE EXCEPT FOR HPI RESPIRATORY: NEGATIVE EXCEPT FOR HPI GASTROINTESTINAL/ABDOMINAL: NEGATIVE EXCEPT FOR HPI GENITOURINARY: NEGATIVE EXCEPT FOR HPI MUSCULOSKELETAL: NEGATIVE EXCEPT FOR HPI POSTERIOR CERVICAL NECK PAIN DIFFUSE NO MIDLINE SPINE PAIN NO STEP-OFF INTEGUMENTARY: NEGATIVE EXCEPT FOR HPI NEUROLOGICAL/PSYCH: NEGATIVE EXCEPT FOR HPI HEMATOLOGIC/LYMPHATIC: NEGATIVE EXCEPT FOR HPI ALL SYSTEMS NEGATIVE, EXCEPT NOTED ABOVE. 13 POINT REVIEW OF SYSTEMS ASSESSED AND ALL NEGATIVE EXCEPT FOR ABOVE. Initial Vital Sign VS Vital Signs Date Time Temp Pulse Resp B/P (MAP) Pulse Ox O2 Delivery O2 Flow Rate FiO2 10/25/24 15:35 98.2 74 20 126/57 94 Room Air 0 10/25/24 15:39 21 Physical Exam Dictation VITAL SIGNS REVIEWED GENERAL APPEARANCE: ALERT, ORIENTED X 3, NO ACUTE DISTRESS, WELL DEVELOPED, NOURISHED. HEAD AND FACE: PERIORBITAL ECCHYMOSIS TO LEFT AND ECCHYMOSIS TO LEFT LATERAL INFERIOR CHIN. TMJ INTACT RANGE OF MOTION TO HER MANDIBLE EYES: RIGHT PUPIL MILDLY DILATED, PINK CONJUNCTIVAS, EYELID NO TRAUMA, ANTERIOR CHAMBER WITH ARCUS SENILIS. PUPILS REACT TO LIGHT EARS: PINNAS INTACT AND NO SIGNS OF TRAUMA OR ERYTHEMA EAR CANALS CLEAR AND NO DISCHARGE TM NO ERYTHEMA NOSE: NO DISCHARGE, NO BLEEDING. OROPHARYNX: MOUTH NORMAL, TONGUE PINK, PHARYNX CLEAR,NO ERYTHEMA, TONSILS NO EXUDATES, NO ABSCESSES NOTED, MUCOUS MEMBRANE MOIST NECK: SUPPLE, NON-TENDER, NO THYROMEGALY, NO MASSES, NO JVD, NO BRUITS BREAST:DEFERRED CHEST:NO TENDERNESS, NO CREPITUS, NO PARADOXICAL MOVEMENT, NO RETRACTIONS LUNGS:CLEAR, WELL-VENTILATED, SYMMETRIC, NO RALES, NO WHEEZING, NO RHONCHI, NO STRIDOR, GOOD BREATH SOUNDS BILATERALLY HEART: REGULAR RATE, REGULAR RHYTHM, NO MURMUR, NO GALLOPS VASCULAR: NO PERIPHERAL EDEMA, ABDOMEN: SOFT, POSITIVE BOWEL SOUNDS, NONDISTENDED, NO GUARDING, NONTENDER, NO REBOUND, NO MASSES NO HEPATOMEGALY, NO SPLENOMEGALY, NO TOSCANO'S SIGN, NO HERNIAS. RECTAL: DEFERRED GENITAL: DEFERRED NEUROLOGICAL: NORMAL SPEECH, MOTOR FUNCTION INTACT, SENSORY FUNCTION INTACT MUSCULOSKELETAL: NECK NONTENDER, FULL RANGE OF MOTION, BACK NONTENDER, FULL RANGE OF MOTION, EXTREMITIES: SPLINT IN PLACE TO LEFT FOREARM DISTAL NEUROVASCULAR CMS INTACT. SKIN: COLOR PINK, DRY, NO TURGOR, NO RASH, NO LACERATIONS, NO ABRASIONS, NO CONTUSIONS. LYMPHATIC: DEFERRED Results (Laboratory/Radiology) Laboratory/Radiology FINDINGS: No acute fracture. Moderate levoscoliosis. Normal lordotic curvature. Flowing ossifications noted anterior to the cervical spine, likely diffuse idiopathic skeletal hyperostosis. Normal vertebral body and disc heights. Normal bone density. The surrounding soft tissues are unremarkable. Occipital craniectomy noted. Level by level disease is present as follows: C1-C2: No osteoarthritis. C2-C3: No disc bulge or herniation. No neural foraminal, lateral recess or spinal canal stenosis. C3-C4: No disc bulge or herniation. No neural foraminal, lateral recess or spinal canal stenosis. C4-C5: No disc bulge or herniation. No neural foraminal, lateral recess or spinal canal stenosis. C5-C6: No disc bulge or herniation. No neural foraminal, lateral recess or spinal canal stenosis. C6-C7: 3 mm disc osteophyte complex bulge causing mild indentation on the anterior thecal sac. No neural foraminal or lateral recess stenosis. C7-T1: No disc bulge or herniation. No neural foraminal, lateral recess or spinal canal stenosis. IMPRESSIONS: No acute fracture. Moderate levoscoliosis. Flowing ossifications anterior to the cervical spine, likely diffuse idiopathic skeletal hyperostosis. Mild indentation on the anterior thecal sac at the C6-C7 level. No acute interval change. / ATIENT: KATELYNN FRANCIS MR#: [id number] : 1960 SEX: F AGE: 64 LOCATION: [facility] ORDER [id number] STATUS: REG ER REPORT#: [id number] SERVICE [id number] REASON: LEFT PERIORBITAL PAIN SWELLING STATUS POST SAME LEVEL FALL MONDAY ORDERING PHYSICIAN: LYNDON ROACH NP PROCEDURE: MAXFA WO - CT MAXILLOFACIAL W/O CONTRAST EXAM: Non-contrast CT examination of the Face CLINICAL HISTORY: Left periorbital pain and swelling. Status post same level fall. TECHNIQUE: Thin collimated axial CT images of the face were obtained with sagittal and coronal reformatted images also submitted. CT scan done according to ALARA (As Low as Reasonably Achievable). CONTRAST USED: None. COMPARISON: None provided. FINDINGS: No acute facial fractures. Small, mucus retention cysts in bilateral maxillary sinuses. 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 The remaining paranasal sinuses and mastoid air cells are clear. The globes, optic nerves, extraocular muscles and retro-orbital fat are grossly unremarkable. Reformatted imaging demonstrates intact roof and floor of the orbits. Included portions of the mandible are intact. Occipital craniectomy noted. IMPRESSION: No acute abnormality. No acute facial fractures. Occipital craniectomy. 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 /[place] [facility] Reviewed?: Yes ED Course ED Course Orders Procedure Category Date Status Time Ct Maxillofacial W/O CT 10/25/24 Resulted Contrast 15:44 Ct Cervical Spine W/O CT 10/25/24 Resulted Contrast 16:16 Vital Signs Date Time Temp Pulse Resp B/P (MAP) Pulse Ox O2 Delivery O2 Flow Rate FiO2 10/25/24 17:18 98.2 76 16 153/66 96 Room Air* 0 21 10/25/24 15:39 98.2 74 16 126/57 94 Room Air* 0 21 10/25/24 15:35 98.2 74 20 126/57 94 Room Air 0 1750/PATIENT DISCHARGED WITH HER NEUROLOGICALLY INTACT IN HIS HER BASELINE PER THE . THEY ARE AWARE THAT CT OF NECK AND MAXILLOFACIAL ALL NEGATIVE Medical Decision Making MDM MEDICAL DISCHARGE MAKING BASED ON CAT SCANS OF MAXILLOFACIAL AND CERVICAL NECK. PAIN PATIENT NEUROLOGICALLY INTACT CAT SCANS UNREMARKABLE FOR FRACTURE, CT OF THE MAXILLOFACIAL DEMONSTRATE PRIOR CRANIECTOMY WHICH PATIENT HAD YEARS AGO. ALL QUESTIONS AND DX & DISP Disposition: Discharge Departure Impression: Primary Impression: Facial contusion Additional Impressions: Cervical strain, acute, Fall Condition: Stable Additional Instructions: FOLLOW-UP WITH PRIMARY CARE PROVIDER IN 1 TO 2 DAYS. TAKE MEDICATIONS DIRECTED HERE IN THE EMERGENCY ROOM. OKAY TO CONTINUE HOME MEDICATIONS UNLESS OTHERWISE DISCUSSED DURING YOUR VISIT IN THE EMERGENCY ROOM TODAY. RETURN TO YOUR NEAREST EMERGENCY ROOM IF SYMPTOMS WORSEN OR IF THERE IS NO IMPROVEMENT. CALL 911 IF YOU NEED IMMEDIATE ASSISTANCE. TAKE TYLENOL OR MOTRIN [id number] NEEDED AND IF NO CONTRAINDICATIONS ARE PRESENT. INCREASE ORAL HYDRATION. A WOUND CULTURE OR URINE CULTURE WAS ORDERED HERE IN THE EMERGENCY ROOM DEPARTMENT PLEASE FOLLOW-UP WITH PRIMARY CARE PROVIDER AND ADVISE THEM TO GET REPEAT PORTS FROM OUR FACILITY. IF YOU HAD ANY KATIE WRAP/SPLINTS THAT WERE APPLIED HERE, PLEASE DO NOT REMOVE THEM UNTIL YOU SEE YOUR PRIMARY CARE OR SPECIALTY. DIET AND ACTIVITY TOLERATED. FOLLOW UP WITH YOUR PRIMARY CARE DOCTOR IN THE NEXT 1-2 DAYS. GUARDED AMBULATION WHEN TAKING NORCO AND TYLENOL NO. 3 AT HOME. Referrals: NANCY HANLEY MD (PCP) Time of Disposition: 17:56 I have reviewed the case, and I agree with, Diagnosis and Plan LYNDON ROACH NP Oct 25, 2024 15:47
[2024-10-25 17:18] VITALS: BP 153/66; PULSE 76; RESP 16; TEMP 98.2; O2SAT 96
--- NOTE | 2024-10-25 17:43 | HMCIMG ---
EXAM: CT Cervical Spine Without IV Contrast CLINICAL HISTORY: Diffuse posterior cervical pain. Status post fall. TECHNIQUE: Thin collimated axial CT images of the cervical spine were obtained with sagittal and coronal reformatted images also submitted. CT scan is done according to ALARA (As Low As Reasonably Achievable). CONTRAST: None. COMPARISON: MRI dated 02/23/21. FINDINGS: No acute fracture. Moderate levoscoliosis. Normal lordotic curvature. Flowing ossifications noted anterior to the cervical spine, likely diffuse idiopathic skeletal hyperostosis. Normal vertebral body and disc heights. Normal bone density. The surrounding soft tissues are unremarkable. Occipital craniectomy noted. Level by level disease is present as follows: C1-C2: No osteoarthritis. C2-C3: No disc bulge or herniation. No neural foraminal, lateral recess or spinal canal stenosis. C3-C4: No disc bulge or herniation. No neural foraminal, lateral recess or spinal canal stenosis. C4-C5: No disc bulge or herniation. No neural foraminal, lateral recess or spinal canal stenosis. C5-C6: No disc bulge or herniation. No neural foraminal, lateral recess or spinal canal stenosis. C6-C7: 3 mm disc osteophyte complex bulge causing mild indentation on the anterior thecal sac. No neural foraminal or lateral recess stenosis. C7-T1: No disc bulge or herniation. No neural foraminal, lateral recess or spinal canal stenosis. IMPRESSIONS: No acute fracture. Moderate levoscoliosis. Flowing ossifications anterior to the cervical spine, likely diffuse idiopathic skeletal hyperostosis. Mild indentation on the anterior thecal sac at the C6-C7 level. No acute interval change. /[place]
--- NOTE | 2024-10-25 17:48 | HMCIMG ---
EXAM: Non-contrast CT examination of the Face CLINICAL HISTORY: Left periorbital pain and swelling. Status post same level fall. TECHNIQUE: Thin collimated axial CT images of the face were obtained with sagittal and coronal reformatted images also submitted. CT scan done according to ALARA (As Low as Reasonably Achievable). CONTRAST USED: None. COMPARISON: None provided. FINDINGS: No acute facial fractures. Small, mucus retention cysts in bilateral maxillary sinuses. 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 The remaining paranasal sinuses and mastoid air cells are clear. The globes, optic nerves, extraocular muscles and retro-orbital fat are grossly unremarkable. Reformatted imaging demonstrates intact roof and floor of the orbits. Included portions of the mandible are intact. Occipital craniectomy noted. IMPRESSION: No acute abnormality. No acute facial fractures. Occipital craniectomy. 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 /[place]
== END 2024-10-25 18:45 | disposition home or self-care (01) ==
LOC: EDH 15:32
DX: S16.1XXA Strain of muscle, fascia and tendon at neck level, initial encounter (principal); S00.83XA Contusion of other part of head, initial encounter; I11.0 Hypertensive heart disease with heart failure; I50.9 Heart failure, unspecified; E11.9 Type 2 diabetes mellitus without complications; E78.00 Pure hypercholesterolemia, unspecified; Z79.82 Long term (current) use of aspirin; Z79.85 Long-term (current) use of injectable non-insulin antidiabetic drugs; Z79.899 Other long term (current) drug therapy; Z95.1 Presence of aortocoronary bypass graft; W01.0XXA Fall on same level from slipping, tripping and stumbling without subsequent striking against object, initial encounter; Y93.89 Activity, other specified; Y92.89 Other specified places as the place of occurrence of the external cause; Y99.8 Other external cause status
CPT/HCPCS: 70486; 72125; 99284

== ENCOUNTER 2025-01-04 00:12 | Emergency (ER) | payer OTHER ==
[~2025-01-04] VITALS: Ht 147.3 cm; Wt 90.7 kg
[~2025-01-04 00:12] MED LIST changes: +LABE-10 PO; -LABE200T7 PO
--- NOTE | 2025-01-04 00:42 | ERN ---
ED Note History of Present Illness Stated Complaint: ABDOMINAL PAIN,UTI Chief Complaint: Multiple Complaints Time Seen by MD: 00:20 Time Seen by Midlevel: 00:20 Dictation: The patient is a 64-year-old female with a history of CAD, CHF, diabetes, CABG w ho presents to the emergency department with complaints of left upper and lower abdominal pain onset yesterday. Patient denies any nausea or vomiting, denies any diarrhea or constipation. Reports last bowel movement yesterday. Denies any urinary discomfort but reports she was seen by her primary doctor today and was prescribed Cipro for a UTI. Denies any fevers. Allergies: Coded Allergies: No Known Drug Allergies (Unverified Allergy, Unknown, 03/01/23) Home Meds Active Scripts Acetaminophen with Codeine (Acetaminophen-Cod #3 Tablet) 300 Mg-30 Mg Tablet, 1 TAB PO Q8H PRN for pain for 3 Days, #9 TAB 0 Refills Prov:JERRY SHELDON [facility] 10/18/24 Cefdinir (Cefdinir) 300 Mg Capsule, 1 CAP PO BID for 3 Days, #14 CAP 0 Refills Prov:JERRY SHELDON [facility] 10/18/24 Ibuprofen (Ibuprofen) 400 Mg Tablet, 400 MG PO Q8H PRN for PAIN for 5 Days, #15 TAB Prov:JERRY SHELDON [facility] 10/18/24 Reported Medications Metoclopramide HCl (Metoclopramide HCl) 10 Mg Tablet, 1 TAB PO TID for 30 Days, #120 TAB 0 Refills 10/15/24 Famotidine (Famotidine) 40 Mg Tablet, 1 TAB PO DAILY for 30 Days, #30 TAB 0 Refills 09/03/24 [Cranberry] No Conflict Check, 650 MG PO AM 09/03/24 Tirzepatide (Mounjaro) 10 Mg/0.5 Ml Pen.injctr, 10 MG SQ QWEEK 09/03/24 Pregabalin (Pregabalin) 100 Mg Capsule, 1 CAP PO TID MDD 3 Capsule(s) for 30 Days, #90 CAP 0 Refills 09/03/24 Omeprazole (Omeprazole) 40 Mg Capsule.dr, 1 CAP PO DAILY for 30 Days, #30 CAP 0 Refills 09/03/24 Atorvastatin Calcium (LIPITOR) 40 Mg Tablet, 1 TAB PO DAILY for 30 Days, #30 TAB 0 Refills 09/03/24 Cholecalciferol (Vitamin D3) (Vitamin D3) 250 Mcg (39149 Unit) Capsule, 1 CAP PO DAILY for 30 Days, #30 CAP 0 Refills 09/03/24 [Vitamin B12 Complex] No Conflict Check, 100 MG PO AM 09/03/24 Memantine HCl (Memantine HCl) 5 Mg Tablet, 5 MG PO HS, TAB 02/08/24 Insulin Glargine,Hum.rec.anlog (Lantus) 100 Unit/Ml Inj, 100 UNITS SQ AM, ML 08/29/23 Duloxetine HCl (Duloxetine HCl) 60 Mg Capsule.dr, 60 MG PO AM, CAP 08/29/23 Mirabegron (Myrbetriq) 50 Mg Tab.er.24h, 50 MG PO AM, TAB 08/29/23 [Tylenol] No Conflict Check, 650 MG PO BID 08/29/23 Lamotrigine (Lamotrigine) 150 Mg Tablet, 150 MG PO BID, TAB 04/05/23 Labetalol HCl (Labetalol HCl) 200 Mg Tablet, 200 MG PO BID, TAB 04/05/23 Olmesartan Medoxomil (Olmesartan Medoxomil) 40 Mg Tablet, 40 MG PO DAILY, TAB 10/26/22 Aspirin (ASPIRIN 81 MG ECTAB) 81 Mg Ectab, 81 MG PO DAILY, TAB.EC 12/06/20 Past Medical History Past Medical History: CHF, Diabetes-Type II, High Cholesterol, Heart Disease, Hypertension Additional Past Medical Hx: BRAIN TUMORS Surgical History: CABG, Other Surgical History Other: CRAINEOTOMY Social History: Lives with family History: Not Applicable RN Note Reviewed/Agreed w/PFSH: Yes Review of System Dictation Constitutional: Negative for fever,chills, and weight loss Eyes: Negative for injury, pain,redness, and discharge ENT: Negative for injury,pain or swelling Cardiovascular: Negative for chest pain, palpitations, and edema Respiratory: Negative for shortness of breath, cough, and wheezing, Abdomen/GI: Negative for nausea, vomiting, diarrhea, and constipation positive for abdominal pain Back: Negative for injury and pain : Negative for injury, bleeding and discharge MS/Extremity: Negative for injury and deformity Skin: Negative for rash, and discoloration Neuro: Negative for headache, weakness, numbness, tingling, and seizure Psych: Negative for suicide ideation, homicidal ideation, and hallucinations Initial Vital Sign VS Vital Signs Date Time Temp Pulse Resp B/P (MAP) Pulse Ox O2 Delivery O2 Flow Rate FiO2 01/04/25 00:44 98.1 95 20 167/87 91 Room Air 0 Physical Exam Dictation Vital Signs reviewed General Appearance: Alert, oriented x 3, no acute distress, well developed, nourished. Head and Face: non-traumatic. Eyes: PERRL, pink conjunctivas, eyelid no trauma, anterior chamber with arcus senilis. Ears: Pinnas intact and no signs of trauma or erythema ear canals clear and no discharge TM no erythema Nose: No discharge, no bleeding. Oropharynx: Mouth normal, tongue pink. pharynx clear,no erythema, tonsils no exudates, no abscesses noted, mucous membrane moist Neck: Supple, non-tender, no thyromegaly, no masses, no JVD, no bruits Breast:Deferred Chest:No tenderness, no crepitus, no paradoxical movement, no retractions Lungs:Clear, well-ventilated, symmetric, no rales, no wheezing, no rhonchi, no stridor, good breath sounds bilaterally Heart: Regular rate, regular rhythm, no murmur, no gallops Vascular: no peripheral edema, Abdomen: Firm, positive bowel sounds, distended, no guarding, nontender, no rebound, no masses no hepatomegaly, no splenomegaly, no Queen's sign, no hernias. Rectal: Deferred Genital: Deferred Neurological: Normal speech, motor function intact, sensory function intact Musculoskeletal: Neck nontender, full range of motion, back nontender, full range of motion, Extremities: nontender, full range of motion Skin: Color pink, dry, no turgor, no rash, no lacerations, no abrasions, no contusions. Lymphatic: Deferred Results (Laboratory/Radiology) Laboratory/Radiology Laboratory Tests Test 01/04/25 00:47 White Blood Count 11.2 K/uL (4.8-10.8) H Red Blood Count 4.80 MIL/uL (4.00-5.50) Hemoglobin 11.9 g/dL (12.0-16.0) L Hematocrit 38.3 % (36-48) Mean Corpuscular Volume 79.8 fL (79-99) Mean Corpuscular Hemoglobin 24.8 pg (27.0-33.0) L Mean Corpuscular Hemoglobin Concent 31.1 g/dL (32.0-36.0) L Red Cell Distribution Width 14.9 % (11.0-15.5) Platelet Count 275 K/uL (130-400) Mean Platelet Volume 11.6 fL (7.5-10.5) H Immature Granulocyte % (Auto) 0.5 % (0-1) Neutrophils (%) (Auto) 69.5 % (40.0-77.0) Lymphocytes (%) (Auto) 10.9 % (21.0-51.0) L Monocytes (%) (Auto) 12.6 % (3.0-13.0) Eosinophils (%) (Auto) 5.7 % (0.0-8.0) Basophils (%) (Auto) 0.8 % (0.0-5.0) Neutrophils # (Auto) 7.8 K/uL (1.8-7.7) H Lymphocytes # (Auto) 1.2 K/uL (1.0-4.8) Monocytes # (Auto) 1.4 K/uL (0.1-1.0) H Eosinophils # (Auto) 0.64 K/uL (0.00-0.70) Basophils # (Auto) 0.09 K/uL (0.00-0.20) Absolute Immature Granulocyte (auto 0.06 K/uL (0-1) Nucleated Red Blood Cells 0.0 % (0.0-0.19) Red Blood Cell Morphology See comments Sodium Level 129 mmol/L (136-145) L Potassium Level 4.2 mmol/L (3.5-5.1) Chloride Level 93 mmol/L (101-111) L Carbon Dioxide Level 30 mmol/L (21-32) Blood Urea Nitrogen 23 mg/dL (7-18) H Creatinine 1.5 mg/dL (0.5-1.0) H Glomerular Filtration Rate Calc 39 mL/min (>90) Random Glucose 279 mg/dL (70-105) H Total Calcium 10.9 mg/dL (8.5-10.1) H Total Bilirubin 0.3 mg/dL (0.2-1.0) Aspartate Amino Transf (AST/SGOT) 19 U/L (10-37) Alanine Aminotransferase (ALT/SGPT) 26 U/L (12-78) Alkaline Phosphatase 275 U/L (50-136) H Troponin I High Sensitivity 12 ng/L (4-50) Total Protein 6.7 g/dL (6.0-8.3) Albumin 3.2 g/dL (3.5-5.0) L Lipase 13 U/L (16-77) L Labs Reviewed?: Yes EKG: (+) rhythm (Sinus rhythm) EKG Comment: Date:03/06/2024 Time:0119 Ventricular rate:91 VA interval:166 QRS duration:98 QT/QTc:346/426 EKG interpretation: Sinus rhythm Reviewed by ED Attending no STEMI CT Scan Comment: PATIENT: KATELYNN FRANCIS MR#: [id number] : 1960 SEX: F AGE: 64 LOCATION: [facility] ORDER 1 STATUS: REG REPORT#: [id number] SERVICE 0 REASON: ABD PAIN ORDERING PHYSICIAN: BESSIE ZARCO TURF GROWER PROCEDURE: ABD PEL WO - CT ABDOMEN/PELVIS W/O CONTRAST EXAM: CT Abdomen and Pelvis without IV contrast CLINICAL HISTORY: Pain. TECHNIQUE: Thin collimated axial CT images of the abdomen and pelvis were obtained with sagittal and coronal reformatted images also submitted. CT scan is done according to ALARA (As Low As Reasonably Achievable). CONTRAST: None. COMPARISON: None. FINDINGS: Unremarkable visualized lung parenchyma. Coronary artery calcifications. Lobulated and nodular hepatic contour, concerning chronic liver parenchymal disease. There are a few punctate calcified granulomas within the liver. Mild to moderate splenomegaly measures up to 16.3 cm in the long axis with a few punctate calcified granulomas within the spleen. Status post cholecystectomy. No focal abnormality within the pancreas or adrenals. There are a few nonobstructive renal calculi on the left side, the largest measures up to 0.4 cm. Unremarkable urinary bladder. Presumed post hysterectomy and bilateral oophorectomy status. No obvious bowel wall thickening, dilatation, or obstruction. Unremarkable appendix. A component of mild constipation is present in the colon. Calcific atherosclerotic disease in the abdominal aorta and its branches. No pathological lymphadenopathy in the abdomen or pelvis. No ascites or pneumoperitoneum. No acute bony abnormality is evident. Degenerative osseous changes. Mild levoscoliosis of the lumbar spine. IMPRESSIONS: No acute process in the abdomen or pelvis. Chronic liver parenchymal disease. Mild to moderate splenomegaly. Punctate calcified granulomas in the liver and spleen. Nonobstructive left renal calculi. No ureteral calculus or hydronephrosis bilaterally. A component of mild constipation is present in the colon. /[place] DICTATED BY: CULLEN PRO Jr., MD DATE: 01/04/25454 ELECTRONICALLY SIGNED BY: CULLEN PRO Jr., MD DATE: 01/04/25454 ED Course ED Course Orders Procedure Category Date Status Time Cbc With Differential LAB 01/04/25 Complete 00:39 Comprehensive LAB 01/04/25 Complete Metabolic Panel 00:39 Troponin I High LAB 01/04/25 Complete Sensitivity 00:39 Urinalysis Profile LAB 01/04/25 Logged 00:39 12 Lead Ekg Tracing- EKG 01/04/25 Complete Technical 00:39 Pantoprazole 40mg Inj PHA 01/04/25 Complete (Protonix 40mg Inj 01:00 Lipase LAB 01/04/25 Complete 00:39 Ct Abdomen/Pelvis W/O CT 01/04/25 Resulted Contrast 01:51 Dicyclomine Hcl PHA 01/04/25 Logged (Bentyl 20mg Tab) 05:00 Current Medications Medications (Trade) Dose Ordered Sig/Krishna Route PRN Reason Start Time Stop Time Status Last Admin Dose Admin Dicyclomine HCl (Bentyl 20mg Tab) 20 mg ONCE ONCE PO 01/04/25 05:00 01/04/25 05:01 UNV Pantoprazole Sodium (PROTonix 40MG INJ) 40 mg ONCE ONCE IVP 01/04/25 01:00 01/04/25 01:01 DC 01/04/25 02:45 Vital Signs Date Time Temp Pulse Resp B/P (MAP) Pulse Ox O2 Delivery O2 Flow Rate FiO2 01/04/25 00:44 98.1 95 20 167/87 91 Room Air 0 Medical Decision Making MDM The patient is a 64-year-old female with a history of CAD, CHF, diabetes, CABG who presents to the emergency department with complaints of left upper and lower abdominal pain onset yesterday. Patient denies any nausea or vomiting, denies any diarrhea or constipation. Reports last bowel movement yesterday. Denies any urinary discomfort but reports she was seen by her primary doctor today and was prescribed Cipro for a UTI. Denies any fevers. No acute findings on CT abdomen to explain patient's pain in the left side of he r abdomen. She was started on Cipro by her doctor for UTI. Patient also does struggle with chronic pain and has a pain management doctor for opiates. She did take a two doses of Tylenol three today. He does also report difficulty with gastroparesis. I do not appreciate any rash on the left flank. He has had etiologies unclear. We did talk about different therapeutic options. She is on chronic opiates that is managed by her pain doctor reports that any pain medicine comes to him. Can try Bentyl here after discussion that it may cause worsening gastroparesis with chronic use as it has been anticholinergic. It would like to have a prescription they will do a trial. Follow up with GI and primary care physician a pain doctor. DX & DISP Disposition: Discharge Departure Impression: Primary Impression: Abdominal pain Condition: Stable Scripts Dicyclomine HCl (Bentyl) 10 Mg Cap 1 CAP PO TID for irritable bowel symptoms for 30 Days, #15 CAP 0 Refills Prov: ARNALDO HERNANDEZ MD 01/04/25 Additional Instructions: You can do a trial of Bentyl or dicyclomine to see if it helps your abdominal pain. . If this does not health. Your regular pain medications as needed for pain at place of Bentyl Follow up with the primary, GI doctor, pain doctor Return for worsening symptoms, inability to tolerate oral intake, or any other concerns Referrals: NANCY HANLEY MD (PCP) BESSIE ZARCO Jan 04, 2025 00:42 ARNALDO HERNANDEZ MD Jan 04, 2025 04:52
[2025-01-04 00:55] LABS: IMMATURE GRANULOCYTE ABSOLUTE 0.06 K/uL (0-1); NUCLEATED RED BLOOD CELLS 0.0 % (0.0-0.19); PLATELET COUNT (AUTO) 275 K/uL (130-400); RED BLOOD CELL COUNT(AUTO) 4.80 MIL/uL (4.00-5.50); RED CELL DISTRIBUTION WIDTH 14.9 % (11.0-15.5); WHITE BLOOD COUNT (AUTO) 11.2 K/uL (4.8-10.8)
[2025-01-04 01:02] LABS: CREATININE 1.5 mg/dL (0.5-1.0); GLOMERULAR FILTR. RATE CALC 39.0 mL/min (>90); GLUCOSE,RANDOM 279.0 mg/dL (70-105); SODIUM SERUM 129.0 mmol/L (136-145); UREA NITROGEN, BLOOD 23.0 mg/dL (7-18)
[2025-01-04 01:07] LABS: ASPARTATE AMINOTRANSFERASE 19.0 U/L (10-37); TOTAL PROTEIN, SERUM 6.7 g/dL (6.0-8.3)
--- NOTE | 2025-01-04 01:21 | EKG ---
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
--- NOTE | 2025-01-04 03:56 | HMCIMG ---
EXAM: CT Abdomen and Pelvis without IV contrast CLINICAL HISTORY: Pain. TECHNIQUE: Thin collimated axial CT images of the abdomen and pelvis were obtained with sagittal and coronal reformatted images also submitted. CT scan is done according to ALARA (As Low As Reasonably Achievable). CONTRAST: None. COMPARISON: None. FINDINGS: Unremarkable visualized lung parenchyma. Coronary artery calcifications. Lobulated and nodular hepatic contour, concerning chronic liver parenchymal disease. There are a few punctate calcified granulomas within the liver. Mild to moderate splenomegaly measures up to 16.3 cm in the long axis with a few punctate calcified granulomas within the spleen. Status post cholecystectomy. No focal abnormality within the pancreas or adrenals. There are a few nonobstructive renal calculi on the left side, the largest measures up to 0.4 cm. Unremarkable urinary bladder. Presumed post hysterectomy and bilateral oophorectomy status. No obvious bowel wall thickening, dilatation, or obstruction. Unremarkable appendix. A component of mild constipation is present in the colon. Calcific atherosclerotic disease in the abdominal aorta and its branches. No pathological lymphadenopathy in the abdomen or pelvis. No ascites or pneumoperitoneum. No acute bony abnormality is evident. Degenerative osseous changes. Mild levoscoliosis of the lumbar spine. IMPRESSIONS: No acute process in the abdomen or pelvis. Chronic liver parenchymal disease. Mild to moderate splenomegaly. Punctate calcified granulomas in the liver and spleen. Nonobstructive left renal calculi. No ureteral calculus or hydronephrosis bilaterally. A component of mild constipation is present in the colon. /[place]
[2025-01-04] MEDS ORDERED: DICY10 PO (04:51)
[2025-01-04] MEDS: DICYCLOMINE HCL 20 MG TAB PO ONE (05:00)
[2025-01-04 05:12] VITALS: BP 155/83; PULSE 92; RESP 18; TEMP 98.3; O2SAT 96
== END 2025-01-04 05:13 | disposition home or self-care (01) ==
LOC: EDH 00:12
DX: R10.12 Left upper quadrant pain (principal); R10.32 Left lower quadrant pain; E11.9 Type 2 diabetes mellitus without complications; I11.0 Hypertensive heart disease with heart failure; I50.9 Heart failure, unspecified; E78.00 Pure hypercholesterolemia, unspecified; I25.10 Atherosclerotic heart disease of native coronary artery without angina pectoris; Z79.899 Other long term (current) drug therapy; Z79.85 Long-term (current) use of injectable non-insulin antidiabetic drugs; Z79.82 Long term (current) use of aspirin; Z95.1 Presence of aortocoronary bypass graft
CPT/HCPCS: 99285; 74176; 80053; 96374; 84484; 85025; 83690; 36415; 93005; J2470